=== PATIENT | female | born 1940 | race Asian ===

== ENCOUNTER → 2018-03-27 07:43 | Outpatient (CLI) | payer MEDICARE, OTHER, SELFPAY ==
--- NOTE | 2018-03-27 07:49 | CT_ITS ---
STUDY: CT CHEST WITHOUT CONTRAST REASON FOR EXAM: Female, 77 years old. History of the lung cancer. Prior right lobectomy. The patient presents with new right-sided sharp breast pain and chest pain. RADIATION DOSAGE (If Supplied By Facility): CTDIvol = ( 6.29 ) mGy, DLP = ( 240.50 ) mGycm TECHNIQUE: Transaxial imaging was performed without the administration of intravenous contrast material. Multiplanar coronal and sagittal images were reformatted. Individualized dose optimization techniques were used for this CT. COMPARISON: Comparison is made with prior study dated August 09, 2017. FINDINGS: There now is evidence of a 15% right sided hydropneumothorax. This also evidence of a 1.7 cm x 1.3 cm cystic nodule in the peripheral aspect of the right upper lobe as seen on axial image #52. Several scattered cystic nodules are seen adjacent to this. This also evidence of a inhomogeneous infiltration with evidence of bronchiectasis and the infiltration in the posterior medial aspect of the right lower lobe. Necrotic metastasis or superimposed inflammatory changes to be ruled out. There is also evidence of a 1.8 cm x 2.3 cm spiculated nodule along the anterior aspect of the left lower lobe abutting the major fissure as seen on axial image #88. Several smaller inhomogeneous nodules are also seen in the left lower lobe. Metastatic disease should be ruled out. Bullous changes in the left upper lobe. There are calcifications of the coronary arteries. The mediastinal adenopathy as improved. Normal hilar regions. Normal unenhanced pulmonary arteries. There is atherosclerotic calcification of the aortic arch with tortuosity and elongation of the aortic arch and descending thoracic aorta. There are multi-level degenerative changes of the thoracic spine. 1.4 cm nodule in the crux of the left adrenal gland. Calcified splenic granulomas. CT/Chest without Contrast IMPRESSION: 15% right-sided hydropneumothorax with inhomogeneous infiltration in the right lower lobe as described suggestive of possible necrotic metastasis. Nodular density seen in the left lower lobe as described. Metastasis should be ruled out. Decreased size of the left adrenal gland. Electronically Signed: Tony Ceballos MD at 8:45 EDT Tel [phone], Service support ,
== END ==
PROVIDERS: Family Provider Family Medicine; PCP Family Medicine; Visit Provider Internal Medicine Medical Oncology
DX: C34.91 Malignant neoplasm of unspecified part of right bronchus or lung (principal)
CPT/HCPCS: 71250

== ENCOUNTER 2018-06-08 09:14 | Emergency (ER) | payer MEDICARE, OTHER, SELFPAY ==
[2018-06-08 09:17] VITALS: BP 144/79; PULSE 107; RESP 17; TEMP 37.8; O2SAT 98; BMI 17.9
--- NOTE | 2018-06-08 09:39 | EKG12_ITS ---
Test Reason : FALL Blood Pressure : / mmHG Vent. Rate : 100 BPM Atrial Rate : 100 BPM P-R Int : 162 ms QRS Dur : 080 ms QT Int : 364 ms P-R-T Axes : 057 -19 038 degrees QTc Int : 469 ms Normal sinus rhythm Leftward axis Poor R wave progression Confirmed by SARA TOURE, RIGO ([id number]), photo editor JAZMYNE COLEY ([id number]) on 06/11/2018 9:48:55 AM Referred By: TANYA Confirmed By:IRGO RUIZ MD
--- NOTE | 2018-06-08 09:39 | RAD_ITS ---
STUDY: X-RAY CHEST REASON FOR EXAM: Female, 78 years old. Cough, lung cancer. Portions of right lung removed. TECHNIQUE: PA and lateral chest. COMPARISON: CT chest 03/27/2018. FINDINGS: The pneumothorax seen on the CT study of 03/27/2018 has now filled with fluid. There is a loculated pleural effusion of the lung apex and lateral wall. Likely pleural effusion at the right lung base, the cavitary lesion of the right lower lobe previously seen appears to be partially filled with fluid. There are persistent areas of consolidation in the right mid to lower lung. Scattered patchy small opacities are present in the left lung, likely reflecting the lesion seen on prior CT scan. There is no left-sided effusion or pneumothorax. Normal cardiomediastinal silhouette, umer and pleural margins. No acute osseous or upper abdominal process. RAD/Chest PA and Lateral IMPRESSION: Small multifocal opacities in the left lung consistent with previously seen lesions. Persistent right mid to lower lung consolidation. Loculated right pleural effusion. Electronically Signed: Catarino Avalos, at 10:57 EDT Tel , Service support ,
--- NOTE | 2018-06-08 09:39 | CT_ITS ---
STUDY: CT BRAIN WITHOUT CONTRAST REASON FOR EXAM: Female, 78 years old. Follows. Cancer with brain currently radiation therapy, gamma knife treatments. RADIATION DOSAGE (If Supplied By Facility): CTDIvol = ( 44.99 ) mGy, DLP = ( 745.49 ) mGycm TECHNIQUE: Transaxial CT imaging of the brain was performed without administration of intravenous contrast material. Coronal and sagittal 2-D MPR. Individualized dose optimization techniques were used for this CT. COMPARISON: None. FINDINGS: Extracranial soft tissues including orbital contents exhibit no acute abnormality. Craniofacial osseous structures within the field of view exhibit no acute abnormality. Paranasal sinuses, mastoid air cells and middle ear cavities are clear. There are minimal features of age-related atrophy. There are mild features of chronic microvascular ischemic disease in the periventricular white. There are 6 metastatic lesions of the brain. Left occipital, left parietal and frontal. None are seen on the right. Largest left occipital lesion 2.7 cm greatest dimension. Next largest lesion high frontoparietal 2.4 cm. Each of these is surrounded by vasogenic edema. There is no significant mass effect or midline shift. CT/Brain/Head without Contrast IMPRESSION: Multiple metastatic lesions of the brain. Electronically Signed: Catarino Avalos, at 10:49 EDT Tel , Service support ,
--- NOTE | 2018-06-08 09:41 | ED.VISSUMM ---
- ER Visit Summary Date of Service: 06/08/18 Chief Complaint: Fall History of Present Illness: The patient is a [address] Arriola, Dr. Dalal, and Dr. Leger. She has a history of lung cancer with metastases to the brain and got her second gamma knife treatment 1 week ago. She is not getting chemotherapy. She reports that she noticed last night that she had weakness in her legs bilaterally and that her right arm feels weak. States that it has a mind of its own. She was unable to use a spoon to eat soup. Patient reports that at 430 this morning she woke up and had a difficult time walking because her legs were so weak and fell. She hit the back of her head and did not have a loss of consciousness. She is not on any blood thinners. She denies any neck, back, shoulder, wrist, or hip pain. Physical Examination: Vitals: 100.1, 144/79, 107, 17, 98% on room air which is not hypoxic. General: Well-nourished and well-developed. Head: Normocephalic atraumatic. Neck: Supple, no lymphadenopathy. No JVD. Nontender. Cardiovascular: Tachycardic regular rhythm. No murmurs. Respiratory: No respiratory distress. Clear to auscultation bilaterally. Abdominal: Soft, nontender, nondistended, normal bowel sounds. No guarding, rebound, or peritoneal signs. Back: Nontender. Extremities: Nontender, no edema. Skin: Normal color, no rash. Neurologic: Alert and oriented ?3. Cranial nerves II through XII are intact. Normal strength and sensation. NIH scale is 0. Psych: Normal affect. Test Results: EKG is sinus at [address] changes. This is unchanged from March 2017. CBC is marked for white count of 14.9 with 89 segmented neutrophils and 10 lymphocytes. Chem-7 is remarkable for a sodium of 133, chloride 91, BUN of 23, glucose 157, and BUN/creatinine ratio of 23.0. UA has 50-100 white blood cells with 3+ bacteria. It is nitrite positive. Clinical Impression(s) from Imaging Studies Brain CT 06/08/18 09:39 IMPRESSION: Multiple metastatic lesions of the brain. Electronically Signed: Catarino Avalos, at 10:49 EDT Tel , Service support , Chest X-Ray 06/08/18 09:39 IMPRESSION: Small multifocal opacities in the left lung consistent with previously seen lesions. Persistent right mid to lower lung consolidation. Loculated right pleural effusion. Electronically Signed: Catarino Avalos, at 10:57 EDT Tel , Service support , Emergency Department Course and Treatment: Patient was given a dose of Tylenol for her low-grade fever and is resting comfortably. She has multiple antibiotic allergies and has opted to use only oral antibiotics. She was given a dose of Macrobid p.o. She reports that the problems with her right hand have completely resolved. Treatment Plan: The patient was discussed with Dr. Arriola. He questions whether the difficulty using her right hand may have been a focal seizure. However, he would like her to see Dr. Fajardo at prior to starting an antiepileptic. The patient will be placed on Macrobid for her UTI and a culture was sent. Return to the emergency department for any worsening symptoms. Disposition: To home in improved and stable condition. Impression: 1. Lung cancer with metastases to brain. 2. Right hand dysfunction, possible focal seizure. 3. UTI. This note was generated with [employer] dictation software. It may contain incorrect words, spelling, and punctuation that were not noted in review of the chart prior to signing ED Disposition - Plan for ED Patient: Chief Complaint: Fall Instructions: ED UTI Cystitis Female Prescriptions: Nitrofurantoin Macrocrystals [Macrobid] 100 mg PO Q12 #14 capsule Referrals: Doctor,Your [STAFF PHYSICIAN] - Keep [place] appointment Additional Instructions: Speak with Dr. Fajardo about the problems with your right hand and the possiibility of a focal seizure. Dr. Arriola suggested Fi[place] if Dr. Fajardo thinks it may be seizure related.
--- NOTE | 2018-06-08 09:46 | ED.DCSUM_ITS ---
- ER Visit Summary Date of Service: 06/08/18 Chief Complaint: Fall History of Present Illness: The patient is a [address] Arriola, Dr. Dalal, and Dr. Leger. She has a history of lung cancer with metastases to the brain and got her second gamma knife treatment 1 week ago. She is not getting chemotherapy. She reports that she noticed last night that she had weakness in her legs bilaterally and that her right arm feels weak. States that it has a mind of its own. She was unable to use a spoon to eat soup. Patient reports that at 430 this morning she woke up and had a difficult time walking because her legs were so weak and fell. She hit the back of her head and did not have a loss of consciousness. She is not on any blood thinners. She denies any neck, back, shoulder, wrist, or hip pain. Physical Examination: Vitals: 100.1, 144/79, 107, 17, 98% on room air which is not hypoxic. General: Well-nourished and well-developed. Head: Normocephalic atraumatic. Neck: Supple, no lymphadenopathy. No JVD. Nontender. Cardiovascular: Tachycardic regular rhythm. No murmurs. Respiratory: No respiratory distress. Clear to auscultation bilaterally. Abdominal: Soft, nontender, nondistended, normal bowel sounds. No guarding, rebound, or peritoneal signs. Back: Nontender. Extremities: Nontender, no edema. Skin: Normal color, no rash. Neurologic: Alert and oriented ?3. Cranial nerves II through XII are intact. Normal strength and sensation. NIH scale is 0. Psych: Normal affect. Test Results: EKG is sinus at [address] changes. This is unchanged from March 2017. CBC is marked for white count of 14.9 with 89 segmented neutrophils and 10 lymphocytes. Chem-7 is remarkable for a sodium of 133, chloride 91, BUN of 23, glucose 157, and BUN/creatinine ratio of 23.0. UA has 50-100 white blood cells with 3+ bacteria. It is nitrite positive. Clinical Impression(s) from Imaging Studies Brain CT 06/08/18 09:39 IMPRESSION: Multiple metastatic lesions of the brain. Electronically Signed: Catarino Avalos, at 10:49 EDT Tel , Service support , Chest X-Ray 06/08/18 09:39 IMPRESSION: Small multifocal opacities in the left lung consistent with previously seen lesions. Persistent right mid to lower lung consolidation. Loculated right pleural effusion. Electronically Signed: Catarino Avalos, at 10:57 EDT Tel , Service support , Emergency Department Course and Treatment: Patient was given a dose of Tylenol for her low-grade fever and is resting comfortably. She has multiple antibiotic allergies and has opted to use only oral antibiotics. She was given a dose of Macrobid p.o. She reports that the problems with her right hand have completely resolved. Treatment Plan: The patient was discussed with Dr. Arriola. He questions whether the difficulty using her right hand may have been a focal seizure. However, he would like her to see Dr. Fajardo at prior to starting an antiepileptic. The patient will be placed on Macrobid for her UTI and a culture was sent. Return to the emergency department for any worsening symptoms. Disposition: To home in improved and stable condition. Impression: 1. Lung cancer with metastases to brain. 2. Right hand dysfunction, possible focal seizure. 3. UTI. This note was generated with [employer] dictation software. It may contain incorrect words, spelling, and punctuation that were not noted in review of the chart prior to signing ED Disposition - Plan for ED Patient: Chief Complaint: Fall Instructions: ED UTI Cystitis Female Prescriptions: Nitrofurantoin Macrocrystals [Macrobid] 100 mg PO Q12 #14 capsule Referrals: Doctor,Your [STAFF PHYSICIAN] - [facility] [place] appointment Additional Instructions: Speak with Dr. Fajardo about the problems with your right hand and the possiibility of a focal seizure. Dr. Arriola suggested Fi[place] if Dr. Fajardo thinks it may be seizure related.
[2018-06-08] MEDS: Acetaminophen 500 MG Tablet 1000 MG PO (09:57)
[2018-06-08 10:03] LABS: Absolute Neutrophil Count 13.2 X10^3/uL (2.0-7.7); Basophil# 0.01 X10^3/uL; Basophil% 0.1 % (0-1); Hematocrit 37.3 % (37-47); Lymphocyte % 10.1 % (19-41); Mean Corp Hgb Conc 32.2 g/gl (32-36); Mean Corpuscular Hgb 27.1 pg (27.0-32.0); Mean Corpuscular Volume 84.2 fL (81-99); Mean Platelet Vol. 9.1 fl (6.2-12.0); Monocyte# 0.09 X10^3/uL; Monocyte% 0.6 % (0-10); Neutrophil % 88.8 % (47-70); POSITIVE COUNT NO; POSITIVE DIFFERENTIAL NO; POSITIVE MORPHOLOGY NO; Platelet Count 345 K/mm3 (150-450); RBC Distribution Width CV 16.3 % (11.6-14.6); Red Blood Count 4.43 M/mm3 (4.2-5.4); White Blood Count 14.9 K/mm3 (4.4-11.0)
[2018-06-08 10:21] LABS: BUN 23 mg/dL (7-18); Calcium,Total 9.5 mg/dL (8.5-10.1); Chloride 91 mmol/L (98-107); EST Glomerular Filtration Rate 57 mL/min (>60); Est Glom Filt Rate - Afr Amer 69 mL/min (>60); Estimated Creatinine Clearance 32.01 ml/min; Glucose 157 mg/dL (74-106); Potassium 4.2 mmol/L (3.5-5.1); Sodium Level 133 mmol/L (136-145)
[2018-06-08 10:22] LABS: Anion Gap 11 (5-15)
[2018-06-08 10:51] LABS: Mucous, Urine 0 SEEN /hpf (<or=2+)
[2018-06-08 10:54] LABS: Color, Urine Yellow (Yellow); Glucose, Dipstick Normal (Normal); Ketone-Dipstick 15 mg/dl (Negative); Leukocyte Esterase-Dipstick 500 /ul (Negative); Nitrite-Dipstick Positive (Negative); Occult Blood-Urine 25 /ul (Negative); Protein-Dipstick 30 mg/dl (Negative); Urine Bilirubin Dipstick Negative (Negative); Urine Clarity Sl. Cloudy (Clear); Urine Urobilinogen Normal (Normal)
[2018-06-08 11:00] LABS: Bacteria 3+ /hpf (None Seen); Red Blood Cells-Urine 0-5 SEEN /hpf (0-5); Squamous Epithelial Cells - UA 0-5 SEEN /hpf (5-10); White Blood Cells 50-100 SEEN /hpf (0-5)
[2018-06-08 11:12] VITALS: BP 107/80; BP 116/59; BP 140/74; PULSE 90; PULSE 91; PULSE 99
[2018-06-08] MEDS: Nitrofurantoin Macrocrystals 100 MG Capsule PO (12:14)
[2018-06-08 12:31] VITALS: BP 131/71; PULSE 90; RESP 19; O2SAT 93
== END 2018-06-08 12:45 | disposition home or self-care (01) ==
PROVIDERS: Emergency Provider Emergency Medicine; Family Provider Family Medicine; PCP Family Medicine
DX: G25.89 Other specified extrapyramidal and movement disorders (principal); N39.0 Urinary tract infection, site not specified; C34.90 Malignant neoplasm of unspecified part of unspecified bronchus or lung; C79.31 Secondary malignant neoplasm of brain; C78.7 Secondary malignant neoplasm of liver and intrahepatic bile duct; C77.9 Secondary and unspecified malignant neoplasm of lymph node, unspecified; C79.70 Secondary malignant neoplasm of unspecified adrenal gland; I25.10 Atherosclerotic heart disease of native coronary artery without angina pectoris; I10 Essential (primary) hypertension; E78.00 Pure hypercholesterolemia, unspecified; Z79.51 Long term (current) use of inhaled steroids; Z79.82 Long term (current) use of aspirin; Z79.899 Other long term (current) drug therapy
CPT/HCPCS: 70450; 71046; 80048; 81001; 85025; 87077; 87086; 87088; 87186; 93005; 99285; J7040

== ENCOUNTER 2018-06-25 08:10 | Emergency (ER) | payer MEDICARE, OTHER, SELFPAY ==
[2018-06-25 08:12] VITALS: BP 156/83; PULSE 52; RESP 18; TEMP 36.2; O2SAT 92; BMI 17.5
--- NOTE | 2018-06-25 08:49 | ED.DCSUM_ITS ---
- ER Visit Summary Date of Service: 06/25/18 Chief Complaint: [] Fall right scalp injury history of metastatic lung cancer hospice therapy History of Present Illness: The patient is a 78 F [] patient has that history above, she indicates she is chronically dizzy, she inadvertently was dizzy and stumbled and struck her head against an object she had no LOC she has no headache she has no change in vision change in function no numbness weakness or paresthesias she is under the care of hospice she could not contact hospice and she was brought to the hospital on arrival she remains awake and alert her vital signs are within normal range she is not on blood thinners she reports that for the most part she is doing well with care of hospice and her family she denies a headache chest abdominal pain neck pain or any numbness weakness or paresthesias she does not wish to have sutures she wants to be discharged home Physical Examination: [] Is awake and alert she does have what appears to be a 1 cm either superficial abrasion or onion peel type laceration that appears to be well approximated there is no bleeding there is no step-off to the bone there is no tenderness to palpation of this area the rest of her head is unremarkable, the neck is nontender the lungs are clear the heart tones are unremarkable abdomen soft nontender she has scattered contusions to her extremities from prior falls but she has full range of motion of all 4 extremities she reports that her right arm seems weaker than normal but that is baseline she has edema to her lower extremities that she also states is baseline Her tetanus is up-to-date, she does not wish to have suturing, we discussed CT imaging but there is no indication that would be of any benefit to her as even after the fall her physical and neurologic exam are normal she had no LOC she denies headache or any change in neurologic or general function, she was observed in the emergency department can remain stable the hospice nurses came in review the med list there was no blood thinners after observation she will be discharged home with wound and to continue her hospice care, the wound was dressed sterilely cleansed Test Results: [] Emergency Department Course and Treatment: [] Treatment Plan: [] Disposition: [] Home stable Impression: [] head Injury. 1cm laceration right that did not require suturing, history metastatic lung cancer hospice therapy This note was generated with [email or web address] software. It may contain incorrect words, spelling, and punctuation that were not noted in review of the chart prior to signing ED Disposition - Plan for ED Patient: Chief Complaint: Laceration Referrals: Luís Leger MD [Primary Care Provider] -
--- NOTE | 2018-06-25 08:49 | ED.DEP ---
ED Disposition - Plan for ED Patient: Chief Complaint: Laceration Instructions: ED Laceration Hand, ED Contusion Scalp, ED Head Injury Closed Referrals: Luís Leger MD [Primary Care Provider] -
--- NOTE | 2018-06-25 08:51 | ED.DEP ---
ED Disposition - Plan for ED Patient: Chief Complaint: Laceration Instructions: ED Contusion Scalp, ED Head Injury Closed, ED Laceration Hand Referrals: Luís Leger MD [Primary Care Provider] -
[2018-06-25 09:36] VITALS: BP 120/68; PULSE 85; RESP 18
== END 2018-06-25 09:47 | disposition home or self-care (01) ==
PROVIDERS: Emergency Provider Emergency Medicine; Family Provider Family Medicine Hospice and Palliative Medicine; PCP Family Medicine Hospice and Palliative Medicine
DX: S01.01XA Laceration without foreign body of scalp, initial encounter (principal); C34.90 Malignant neoplasm of unspecified part of unspecified bronchus or lung; C79.9 Secondary malignant neoplasm of unspecified site; Z79.51 Long term (current) use of inhaled steroids; Z79.82 Long term (current) use of aspirin; Z79.899 Other long term (current) drug therapy; W26.9XXA Contact with unspecified sharp object(s), initial encounter; Y93.89 Activity, other specified; Y92.009 Unspecified place in unspecified non-institutional (private) residence as the place of occurrence of the external cause; Y99.8 Other external cause status
CPT/HCPCS: 99285